=== PATIENT | male | born 2000 | race African-American/Black ===

== ENCOUNTER 2023-05-08 00:22 | Inpatient (IN) | payer OTHER ==
[2023-05-08] MEDS ORDERED: SODIUM CHLORIDE 0.9% 500 ML INFUS.BAG IV ONE (03:04)
[2023-05-08 04:59] LABS: POTASSIUM 4.4 mmol/L (3.5-5.1)
[2023-05-08 05:02] LABS: ALBUMIN 3.6 g/dl (3.4-5.0); BLOOD UREA NITROGEN 15.9 mg/dL (7-18)
[2023-05-08 05:06] LABS: BILIRUBIN,TOTAL 0.4 mg/dL (0.2-1)
[2023-05-08 05:22] LABS: BASO % 0.4 % (0-2.0); EOS % 0.1 % (0-4.5); HEMATOCRIT 35.8 % (35.4-49); HEMOGLOBIN 11.9 GM/dL (11.7-16.9); MCH 34.3 pg (25.7-33.7); MCHC 33.3 g/dl (32.0-35.9); MEAN PLT VOLUME 7.6 fl (7.5-11.1); MONO % 13.2 % (3.8-10.2); NEUT % 55.3 % (42.8-82.8); PLATELET COUNT 335 10^3/uL (134-434); RBC 3.48 M/mm3 (4.00-5.60); WHITE BLOOD COUNT 4.3 K/mm3 (4.0-10.0)
[2023-05-08] MEDS ORDERED: ALBUTEROL SO4 HFA INHALER IH PRN (11:16)
[2023-05-08] MEDS ORDERED: LABETALOL HCL 200 MG TABLET (FP) ONE (13:18)
[2023-05-08 15:13] LABS: METHADONE, UR NEGATIVE (NEGATIVE); PHENCYCLIDINE,URINE NEGATIVE (NEGATIVE); URINE BENZODIAZEPINES NEGATIVE (NEGATIVE)
[2023-05-08 15:14] LABS: OPIATES, URI NEGATIVE (NEGATIVE); URINE BARBITURATES NEGATIVE (NEGATIVE)
[2023-05-08 15:18] LABS: COCAINE, UR NEGATIVE (NEGATIVE); URINE AMPHETAMINES NEGATIVE (NEGATIVE)
[2023-05-08] MEDS: MELATONIN 5 MG TABLETS PO PRN (23:35)
[2023-05-09 01:30] VITALS: BMI 22.7
[2023-05-09 07:55] LABS: BASO % 0.7 % (0-2.0); EOS % 0.2 % (0-4.5); HEMATOCRIT 39.9 % (35.4-49); HEMOGLOBIN 13.4 GM/dL (11.7-16.9); LYMPH % 32.5 % (8-40); MCH 34.3 pg (25.7-33.7); MCHC 33.7 g/dl (32.0-35.9); MEAN CELL VOLUME 101.8 fl (80-96); MEAN PLT VOLUME 8.4 fl (7.5-11.1); MONO % 8.7 % (3.8-10.2); NEUT % 57.9 % (42.8-82.8); PLATELET COUNT 281 10^3/uL (134-434); RBC 3.92 M/mm3 (4.00-5.60); RDW 13.1 % (11.9-15.9); WHITE BLOOD COUNT 3.8 K/mm3 (4.0-10.0)
[2023-05-09 08:11] LABS: POTASSIUM 3.8 mmol/L (3.5-5.1)
[2023-05-09 08:20] LABS: ALBUMIN 3.8 g/dl (3.4-5.0); CALCIUM 9.9 mg/dL (8.5-10.1); MAGNESIUM 1.8 mg/dL (1.8-2.4)
[2023-05-09 08:21] LABS: BLOOD UREA NITROGEN 11.7 mg/dL (7-18)
[2023-05-09 08:22] LABS: CREATININE 0.9 mg/dL (0.55-1.3)
[2023-05-09 08:24] LABS: BILIRUBIN,TOTAL 1.3 mg/dL (0.2-1); TOT PROT 7.2 g/dl (6.4-8.2)
[2023-05-09] MEDS ORDERED: HYDROCHLOROTHIAZIDE 12.5 MG CAPSULE (FP) PO SCH (10:15)
[2023-05-09 10:38] LABS: BILIRUBIN,DIRECT 0.4 mg/dL (0.0-0.2)
[2023-05-09] MEDS: MINERAL OIL/PET HY-PHL TOPICAL OINTMENT 454 GM JAR TP SCH (12:58)
[2023-05-09] MEDS ORDERED: hydrALAZINE HCL 20 MG/ML VIAL IVPUSH PRN (14:35)
[2023-05-09] MEDS: MELATONIN 5 MG TABLETS PO PRN (21:02)
[2023-05-10 07:24] LABS: POTASSIUM 3.6 mmol/L (3.5-5.1)
[2023-05-10 07:25] LABS: CALCIUM 10.2 mg/dL (8.5-10.1)
[2023-05-10 07:26] LABS: ALBUMIN 3.9 g/dl (3.4-5.0); BLOOD UREA NITROGEN 18.2 mg/dL (7-18)
[2023-05-10 07:31] LABS: BILIRUBIN,TOTAL 0.7 mg/dL (0.2-1); TOT PROT 7.7 g/dl (6.4-8.2)
[2023-05-10] MEDS: ENOXAPARIN NA (PORCINE) 40 MG/0.4 ML DISP.SYRIN SQ SCH (09:38)
[2023-05-10] MEDS: HYDROCHLOROTHIAZIDE 25 MG TABLET (FP) PO SCH (09:38)
[2023-05-10] MEDS ORDERED: hydrALAZINE HCL 10 MG TABLET PO SCH (10:30)
[2023-05-10] MEDS: MINERAL OIL/PET HY-PHL TOPICAL OINTMENT 454 GM JAR TP SCH ×2 (11:03→14:00)
[2023-05-10] MEDS ORDERED: amLODIPine BESYLATE 5 MG TABLET (FP) PO ONE (13:31)
[2023-05-10] MEDS: MELATONIN 5 MG TABLETS PO PRN (21:14)
[2023-05-11 05:57] VITALS: RESP 18
[2023-05-11 09:19] LABS: BASO % 1.1 % (0-2.0); EOS % 1.2 % (0-4.5); HEMATOCRIT 42.3 % (35.4-49); HEMOGLOBIN 14.1 GM/dL (11.7-16.9); LYMPH % 35.5 % (8-40); MCH 33.9 pg (25.7-33.7); MCHC 33.3 g/dl (32.0-35.9); MEAN PLT VOLUME 8.5 fl (7.5-11.1); MONO % 6.9 % (3.8-10.2); NEUT % 55.3 % (42.8-82.8); PLATELET COUNT 221 10^3/uL (134-434); RBC 4.15 M/mm3 (4.00-5.60); WHITE BLOOD COUNT 4.7 K/mm3 (4.0-10.0)
[2023-05-11] MEDS: ENOXAPARIN NA (PORCINE) 40 MG/0.4 ML DISP.SYRIN SQ SCH (09:19)
[2023-05-11] MEDS: HYDROCHLOROTHIAZIDE 25 MG TABLET (FP) PO SCH (09:19)
[2023-05-11] MEDS: MINERAL OIL/PET HY-PHL TOPICAL OINTMENT 454 GM JAR TP SCH (09:20)
[2023-05-11 09:50] LABS: POTASSIUM 3.3 mmol/L (3.5-5.1)
[2023-05-11 09:59] LABS: CALCIUM 10.2 mg/dL (8.5-10.1)
[2023-05-11 10:00] LABS: ALBUMIN 3.9 g/dl (3.4-5.0); BLOOD UREA NITROGEN 24.4 mg/dL (7-18)
[2023-05-11] MEDS ORDERED: amLODIPine BESYLATE 5 MG TABLET (FP) PO SCH (10:00)
[2023-05-11 10:01] LABS: BILIRUBIN,TOTAL 0.4 mg/dL (0.2-1); CREATININE 1.2 mg/dL (0.55-1.3); TOT PROT 7.7 g/dl (6.4-8.2)
[2023-05-11] MEDS ORDERED: POTASSIUM CHLORIDE TABS 20 MEQ TABLET.ER (FP) PO ONE (16:05)
[2023-05-11 19:03] VITALS: BP 149/100; PULSE 98; TEMP 98.2
== END 2023-05-11 19:40 | disposition left against medical advice (07) | DRG 199 ==
LOC: JER 00:22 → JERBED 05:42 → J4S 18:53 → OBSVTOIN 05-10 15:36
PROVIDERS: ADMIT Internal Medicine; ATTEND Internal Medicine
DX: I16.0 Hypertensive urgency (principal); S01.81XA Laceration without foreign body of other part of head, initial encounter; J45.30 Mild persistent asthma, uncomplicated; G47.30 Sleep apnea, unspecified; R94.5 Abnormal results of liver function studies; J43.9 Emphysema, unspecified; K76.0 Fatty (change of) liver, not elsewhere classified; F12.10 Cannabis abuse, uncomplicated; V87.7XXA Person injured in collision between other specified motor vehicles (traffic), initial encounter; Y92.415 Exit ramp or entrance ramp of street or highway as the place of occurrence of the external cause
CPT/HCPCS: 36415; 70450-TC; 70486-TC; 71275-TC; 74177-TC; 76705-TC; 80053; 80061; 80307; 82088; 82103; 82248; 82533; 82550; 82553; 83690; 83735; 83835; 83880; 84100; 84244; 84439; 84443; 84484; 85025; 85379; 85651; 86140; 86705; 86709; 86803; 87517; 87522; 93005; 93010; 93306-TC; 99285-25; G0378; Q9967